=== PATIENT | female | born 1990 | race Caucasian/White ===

== ENCOUNTER 2017-07-16 07:37 | Emergency (ER) | payer OTHER ==
--- NOTE | 2017-07-16 07:58 | EDPHY ---
H & P Stated Complaint: Cut fingertips of left hand at 0630 Time Seen by Provider: 07/16/17 07:48 HPI/ROS: CHIEF COMPLAINT: Finger amputation HISTORY OF PRESENT ILLNESS: Patient is a 26-year-old female who was working when she cut the tips of her left index and middle finger off on a machine. This happened about an hour prior to arrival. Both lacerations or distal to the DIP. They do involve the nail and nail bed. No other injuries. REVIEW OF SYSTEMS: Constitutional: denies: chills, fever, recent illness, recent injury EENTM: denies: blurred vision, double vision, nose congestion Respiratory: denies: cough, shortness of breath Cardiac: denies: chest pain, irregular heart rate, lightheadedness, palpitations Gastrointestinal/Abdominal: denies: abdominal pain, diarrhea, nausea, vomiting, blood streaked stools Genitourinary: denies: dysuria, frequency, hematuria, pain Musculoskeletal: See HPI Skin: denies: lesions, rash, jaundice, bruising Neurological: denies: headache, numbness, paresthesia, tingling, dizziness, weakness Hematologic/Lymphatic: denies: blood clots, easy bleeding, easy bruising Immunologic/allergic: denies: HIV/AIDS, transplant EXAM: GENERAL: Well-appearing, well-nourished and in no acute distress. HEAD: Atraumatic, normocephalic. EYES: Pupils equal round and reactive to light, extraocular movements intact, sclera anicteric, conjunctiva are normal. ENT: TMs normal, nares patent, oropharynx clear without exudates. Moist mucous membranes. NECK: Normal range of motion, supple without lymphadenopathy or JVD. LUNGS: Breath sounds clear to auscultation bilaterally and equal. No wheezes rales or rhonchi. HEART: Regular rate and rhythm without murmurs, rubs or gallops. ABDOMEN: Soft, nontender, normoactive bowel sounds. No guarding, no rebound. No masses appreciated. BACK: No CVA tenderness, no spinal tenderness, step-offs or deformities EXTREMITIES: See diagram NEUROLOGICAL: Cranial nerves II through XII grossly intact. Normal speech, normal gait. 5/5 strength, normal movement in all extremities, normal sensation PSYCH: Normal mood, normal affect. SKIN: Warm, dry, normal turgor, no visible rashes or lesions. Source: Patient Exam Limitations: No limitations - Personal History Current Tetanus Diphtheria and Acellular Pertussis (TDAP): Yes - Medical/Surgical History Hx Asthma: No Hx Chronic Respiratory Disease: No Hx Diabetes: No Hx Cardiac Disease: No Hx Renal Disease: No Hx Cirrhosis: No Hx Alcoholism: No Hx HIV/AIDS: No Hx Splenectomy or Spleen Trauma: No Other PMH: Denies. - Social History Smoking Status: Heavy smoker Alcohol Use: Sober Drug Use: None Constitutional: Initial Vital Signs Temperature (C) 36.6 C 07/16/17 07:38 Heart Rate 90 07/16/17 07:38 Respiratory Rate 18 07/16/17 07:38 Blood Pressure 113/76 07/16/17 07:38 O2 Sat (%) 97 07/16/17 07:38 O2 Delivery Mode Room Air Allergies/Adverse Reactions: No Known Allergies Allergy (Unverified 07/16/17 07:47) Home Medications: Medication Instructions Recorded Cephalexin [Keflex] 500 mg PO TID #21 cap 07/16/17 Hydrocodone/APAP 5/325 [[place]rie 1 - 2 tab PO Q4H PRN #20 tab 07/16/17 5/325 (RX)] ED Images - Extremities Hands Front Left/Right: 1 - Amputation, exposed bone Medical Decision Making Procedures: Patient's fingers were both block with digital block. She was then cleaned and irrigated and redressed. The index finger did require read dressing with Surgicel. ED Course/Re-evaluation: 10:[address] Capone called back. He agrees with the plan thus far. He would like to see the patient in the office tomorrow. He would start the patient on antibiotics. The patient's fingers have been dressed. She agrees with the plan. Differential Diagnosis: Partial list of the Differential diagnosis considered include but were not limited to; finger amputation, fracture, nail bed injury and although unlikely based on the history and physical exam, I also considered infection, body. I discussed these differential diagnoses and the plan with the patient as well as the usual and expected course. The patient understands that the diagnosis is provisional and that in medicine we are not always correct and that further workup is often warranted. Usual and customary warnings were given. All of the patient's questions were answered. The patient was instructed to return to the emergency department should the symptoms at all worsen or return, otherwise to followup with the physician as we discussed. - Data Points Medications Given: Discontinued Medications Cephalexin HCl (Keflex) 500 mg PO EDNOW ONE PRN Reason: Protocol Stop: 07/16/17 10:13 Last Admin: 07/16/17 10:22 Dose: 500 mg Departure - Departure Disposition: Home, Routine, Self-Care Clinical Impression: Traumatic amputation of tip of finger of left hand Condition: Fair Instructions: Finger Amputation (ED) Additional Instructions: We spoke with Dr. Capone over the phone who would like to see you in his office tomorrow. Referrals: NONE *PRIMARY CARE P,. [Primary Care Provider] - As per Instructions Radha Capone MD [Medical Doctor] - 1 day without fail Prescriptions: Cephalexin [Keflex] 500 mg PO TID #21 cap Hydrocodone/APAP 5/325 [[place] 5/325 (RX)] 1 - 2 tab PO Q4H PRN #20 tab PRN Reason: Pain, Moderate
[2017-07-16] MEDS ORDERED: CEPHALEXIN 500 MG CAP PO ONE (10:12)
[2017-07-16 10:25] VITALS: BP 112/80; PULSE 81; RESP 15; TEMP 98.1; O2SAT 99
== END 2017-07-16 10:31 | disposition home or self-care (01) ==
PROC: 3E0T3BZ Introduction of Anesthetic Agent into Peripheral Nerves and Plexi, Percutaneous Approach (ICD-10-PCS; principal; 2017-07-16)
DX: S68.621A Partial traumatic transphalangeal amputation of left index finger, initial encounter (principal); S68.623A Partial traumatic transphalangeal amputation of left middle finger, initial encounter; W26.8XXA Contact with other sharp object(s), not elsewhere classified, initial encounter; Y99.0 Civilian activity done for income or pay; F17.200 Nicotine dependence, unspecified, uncomplicated